=== PATIENT | female | born 1965 | race Caucasian/White ===

== ENCOUNTER 2016-09-10 01:46 | Observation (INO) | payer OTHER ==
[~2016-09-10] VITALS: Ht 149.9 cm; Wt 52.2 kg
[2016-09-10 05:35] LABS: HEMOGLOBIN 11.9 gm/dl (12.3-15.3); RED BLOOD COUNT 3.72 M/UL (4.00-5.10); WHITE BLOOD COUNT 12.5 K/UL (4.5-11.0)
[2016-09-10 06:01] LABS: BUN/CREATININE RATIO 10 (0-10)
[2016-09-10] MEDS ORDERED: NORVASC10 MG PO (06:43)
[2016-09-10 10:37] LABS: BUN/CREATININE RATIO 10 (0-10)
[2016-09-10 11:43] LABS: BUN/CREATININE RATIO 9 (0-10)
[2016-09-10] MEDS ORDERED: GLUCOPHAGE500 MG PO (20:58)
== END 2016-09-10 22:11 | disposition home or self-care (01) ==
LOC: CCU 03:38
PROVIDERS: ADMIT Internal Medicine
DX: D50.9 Iron deficiency anemia, unspecified (principal); E13.10 Other specified diabetes mellitus with ketoacidosis without coma; G40.909 Epilepsy, unspecified, not intractable, without status epilepticus; T42.6X5A Adverse effect of other antiepileptic and sedative-hypnotic drugs, initial encounter; I10 Essential (primary) hypertension; Z91.14 Patient's other noncompliance with medication regimen; Z79.899 Other long term (current) drug therapy
CPT/HCPCS: 36415; 36600; 80048; 80053; 80061; 81001; 82550; 82553; 82728; 82803; 82962; 83036; 83540; 83550; 83735; 84100; 84484; 85025; 87086; 93005; C9113; G0378; G0379; J1650; J1815; J7050